=== PATIENT | female | born 1960 | race African-American/Black ===

== ENCOUNTER 2024-05-09 10:23 | Inpatient (IN) | payer OTHER, MEDICAID ==
[~2024-05-09] VITALS: Ht 152.4 cm; Wt 75.0 kg
--- NOTE | 2024-05-09 10:41 | ECG ---
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
--- NOTE | 2024-05-09 10:48 | ED.PDOC ---
HPI Comments HPI: Poor Historian. 64-year-old female presents to emergency department for evaluation of one day history of left arm shoulder to below the elbow pain. Patient also hold her left chest she has some discomfort. Denies any other associated symptoms except shortness of breath. Denies any fall or trauma or injury. Patient uses [place] at home for pain control for chronic low back pain. Past Medical History: Hypertension, diabetes, hyperlipidemia, arthritis, chronic low back pain Past Surgical History: Ovarian cyst, fibroids, Tobacco abuse Multiple drug allergies. REVIEW OF SYSTEMS: CONSTITUTIONAL: Denies acute: fever, diaphoresis, chills, generalized weakness. HEAD: Denies acute: headache, photophobia Eyes: Denies acute: Double vision, vision loss, eye pain, eye discharge. EARS: Denies acute: tinnitus, hearing loss, ear discharge, ear pain, THROAT: Denies acute: sore throat, swelling, difficulty swallowing , pain with swallowing, change in voice. NECK: Denies acute: neck pain, neck swelling, stiff neck. HEART: Denies acute : LUNGS: Denies acute: SOB, wheezing, cough, hemoptysis ABDOMEN: Denies acute: abdominal pain, Nausea, Vomiting, diarrhea, melena , hematemesis, hematochezia SKIN: Denies acute: rash, redness, lesions, itchiness. EXTREMITIES: Denies acute: calf pain, numbness, tingling, weakness, Denies acute: Low back pain. Neuro: Denies acute: focal neurological deficit, motor or sensory focal neurological deficit, tremors, seizure like activity, confusion, dizziness, change in mental status, loss of bowel or bladder function, cauda equina like symptoms. : Denies acute: dysuria, hematuria, flank pain, increase in urinary frequency. PSYCH: Denies acute: hallucination, suicidal ideation, homicidal ideation. FEMALE: Denies acute: abnormal vaginal bleeding, foul odor, unusual discharge. PHYSICAL EXAM: General: no acute distress, awake and alert. Head: normocephalic, atraumatic. Neck: supple, trachea is midline, no swelling. Throat: Normal phonation. Eyes:, no erythema, no purulent discharge, no proptosis, no icterus. Heart: regular rate, regular rhythm, no significant murmur appreciated. Lungs: no apparent respiratory distress, Able to speak in full sentences. No wheezing, no rhonchi, no crackles. No stridors Clear to auscultation bilaterally. Abdomen: non tender to palpation, non distended, soft, no guarding, no rebound, + bowel sounds. Neuro: Awake, Alert, oriented to name, self, situation, follows commands GCS=15. Speech is normal. Skin: no petechia, no purpura, no cyanosis, non-pale, not jaundice. Lower extremities: --no - Pitting edema no deformity, no focal swelling, no calf TTP. Makes eye contact. moves all four extremities. Face: no apparent facial droop. Ambulating in the ED independently. ED COURSE: Chief Complaint: Chest Pain Time Seen by MD: 10:25 Reviewed Notes: Nurses Notes, Medications, Allergies Allergies: Coded Allergies: Erythromycin (Verified Allergy, Unknown, 05/09/24) Metronidazole (Verified Allergy, Unknown, 05/09/24) Penicillins (Verified Allergy, Unknown, 05/09/24) Information Source: Patient Was a procedure done? Was a procedure done?: No CP Differential Dx Differential Diagnosis: N/A Differential Diagnosis: N/A Differential Diagnosis: Other (Ddx include but not limitied to gastritis, musculoskeletal pain, radiculopathy, atypical chest pain, dissection, aneurysm, ACS, unstable angina, hiatal hernia, GERD, anxiety, costochondritis, PE, pneumothroax, neoplasm, cardiac ischemia, drug abuse, anemia.) X-Ray, Labs, Meds, VS Vital Signs Date Time Temp Pulse Resp B/P (MAP) Pulse Ox O2 Delivery O2 Flow Rate FiO2 05/09/24 12:19 175/80 05/09/24 12:11 68 05/09/24 11:28 67 18 98 Room Air* 0 21 05/09/24 11:26 98.1 67 18 155/97 (116) 98 98.1 05/09/24 11:23 155/97 05/09/24 10:30 71 05/09/24 10:25 97.6 74 18 157/81 (106) 97 Lab Test 05/09/24 11:36 05/09/24 10:49 2/21/25 10:40 Range/Units Troponin I High Sensitivity < 3 L < 3 L </=34 ng/L Urine Color Light-yellow Yellow Urine Clarity Turbid H Clear Urine pH 7.0 5.0-9.0 Urine Specific [place] 1.011 1.001-1.035 Urine Protein Negative Negative Urine Ketones Negative Negative Urine Blood Negative Negative /uL Urine Nitrite Negative Negative Urine Bilirubin Negative Negative Urine Urobilinogen Normal Negative mg/dL Urine Leukocyte Esterase Negative Negative /uL Urine RBC 1 0 - 4 /hpf Urine Microscopic WBC 3 0-5 /HPF Urine Squamous Epithelial Cells Mod <5 /hpf Urine Bacteria None seen None Seen /hpf Urine Glucose Normal Normal mg/dL POC Glucose 190 H 70-106 mg/dl White Blood Count 5.9 4.4-10.8 10^3/uL Red Blood Count 4.62 4.0-5.20 10^6/uL Hemoglobin 14.5 12.2-16.2 g/dL Hematocrit 42.8 36.0-46.0 % Mean Corpuscular Volume 92.6 80.0-100.0 fL Mean Corpuscular Hemoglobin 31.4 28.0-32.0 pg Mean Corpuscular Hemoglobin Concent 33.9 32.0-36.0 g/dL Red Cell Distribution Width 14.3 11.8-14.3 % Platelet Count 220 140-450 10^3/uL Mean Platelet Volume 8.9 6.9-10.8 fL Neutrophils (%) (Auto) 49.6 37.0-80.0 % Lymphocytes (%) (Auto) 38.1 10.0-50.0 % Monocytes (%) (Auto) 9.3 0.0-12.0 % Eosinophils (%) (Auto) 2.3 0.0-7.0 % Basophils (%) (Auto) 0.7 0.0-2.0 % Neutrophils # (Auto) 2.9 1.6-8.6 10 ^3/uL Lymphocytes # (Auto) 2.2 0.4-5.4 10 ^3/uL Monocytes # (Auto) 0.5 0-1.3 10 ^3/uL Eosinophils # (Auto) 0.1 0-0.8 10 ^3/uL Basophils # (Auto) 0 0-0.2 10 ^3/uL Nucleated Red Blood Cells 0.2 % Sodium Level 138 136-145 mmol/L Potassium Level 4.7 3.5-5.1 mmol/L Chloride Level 104 98-107 mmol/L Carbon Dioxide Level 25 20-31 mmol/L Anion Gap 9 5-15 Blood Urea Nitrogen 13 9-23 mg/dL Creatinine 0.77 0.550-1.02 mg/dL Glomerular Filtration Rate Calc 85 >90 mL/min BUN/Creatinine Ratio 16.9 10.0-20.0 Serum Glucose 208 H 74-106 mg/dL Calcium Level 9.7 8.7-10.4 mg/dL Total Bilirubin 0.3 0.2-1.0 mg/dL Aspartate Amino Transferase (AST) 27 13-40 U/L Alanine Aminotransferase (ALT) 26 7-40 U/L Alkaline Phosphatase 159 H 46-116 U/L Total Protein 6.9 5.7-8.2 g/dL Albumin 4.4 3.2-4.8 g/dL Current Medications Medications (Trade) Dose Ordered Sig/Kavon Route Start Time Stop Time Status Last Admin Aspirin (Ecotrin Enteric Coated Tablet) 325 mg ONCE ONCE PO 05/09/24 11:00 05/09/24 11:08 DC 05/09/24 11:23 Nitroglycerin (Ntrostat Sublingual) 0.4 mg ONCE ONCE SL 05/09/24 11:00 05/09/24 11:08 DC 05/09/24 11:23 Time of 1ST Reevaluation: 20:29 Reevaluation 1ST: Improved Patient Education/Counseling: Diagnosis, Treatment Family Education/Counseling: Other Comments Patient presented with the above HPI.--cardiac---workup was initiated. patient was found with the above mentioned diagnosis. the following medications were ordered: please refer to order lists of meds and tests obtained by myself Dr. Kapoor. Patient ED course and VS have been stabilized. Patient has been reassessed in the ED and remained in a stable condition. Pertinent incidental findings were discussed with the patient and/or family. Patient/family voices understanding and is agreeable with plan. Patient has been observed in the ED adequate length of time to insure improvement/stability. Escalation of care considered: Consideration of escalation to observation or admission Patient was ADMITTED to the medicine team for further evaluation and treatment of their presentation. All the reports of any imaging studies that were ordered by myself were reviewed by myself. Departure 1 Departure Time of Disposition: 10:57 Impression: Primary Impression: Chest pain Disposition: 09 ADMITTED INPATIENT Admit to: Tele Condition: Guarded Discharged With: Self Critical Care Note Critical Care Time?: No Heart Score Heart Score: Heart Score Response (Comments) Value History Moderate Suspicious 1 EKG Normal 0 Age >65 2 Risk Factors >3 or Hx ASHD 2 Troponin Normal limit 0 Total 5 I personally scribed for EDGAR KAPOOR DO ([email or web address]) on 05/09/24 at 10:48. Electronically submitted by Geronimo Gonzalez ([email or web address]). EDGAR KAPOOR DO May 09, 2024 10:48
[2024-05-09] MEDS: ASPirin-EC 325mg tab PO ONE (11:23)
[2024-05-09] MEDS: NITROGLYCERIN 0.4 MG SL TAB SL ONE (11:23)
[2024-05-09 11:24] LABS: Basophils # (auto) 0 10 ^3/uL (0-0.2); Basophils % (auto) 0.7 % (0.0-2.0); Eosinophils # (auto) 0.1 10 ^3/uL (0-0.8); Eosinophils % (auto) 2.3 % (0.0-7.0); Hematocrit 42.8 % (36.0-46.0); Hemoglobin 14.5 g/dL (12.2-16.2); Lymphocytes # (auto) 2.2 10 ^3/uL (0.4-5.4); Lymphocytes % (auto) 38.1 % (10.0-50.0); Mean Corpuscular Hemoglobin 31.4 pg (28.0-32.0); Mean Corpuscular Hgb Conc. 33.9 g/dL (32.0-36.0); Mean Corpuscular Volume 92.6 fL (80.0-100.0); Monocytes # (auto) 0.5 10 ^3/uL (0-1.3); Monocytes % (auto) 9.3 % (0.0-12.0); Neutrophils # (auto) 2.9 10 ^3/uL (1.6-8.6); Neutrophils % (auto) 49.6 % (37.0-80.0); Nucleated Red Blood Cells % 0.2 %; Platelet Count (auto) 220 10^3/uL (140-450); Red Blood Cells 4.62 10^6/uL (4.0-5.20); Red Cell Distribution Width 14.3 % (11.8-14.3); White Blood Cell 5.9 10^3/uL (4.4-10.8)
--- NOTE | 2024-05-09 11:24 | DVH ---
EXAM: XY CHEST PORTABLE Indication: CP Technique: Single frontal view of the chest was obtained Comparison: None FINDINGS: Lines and Tubes: None Lungs: No focal consolidation. Pleura: No effusion. No pneumothorax. Cardiomediastinal contours: Unremarkable Bones: No acute osseous abnormality. IMPRESSION: No acute cardiopulmonary disease.
[2024-05-09 11:28] VITALS: PULSE 67; RESP 18; O2SAT 98
[2024-05-09 11:31] LABS: Alanine Aminotransferase 26 U/L (7-40); Albumin 4.4 g/dL (3.2-4.8); Anion Gap 9 (5-15); Aspartate Aminotransferase 27 U/L (13-40); BUN/Creatinine Ratio 16.9 (10.0-20.0); Bilirubin, Total 0.3 mg/dL (0.2-1.0); Blood Urea Nitrogen 13 mg/dL (9-23); Calcium 9.7 mg/dL (8.7-10.4); Carbon Dioxide 25 mmol/L (20-31); Chloride 104 mmol/L (98-107); Potassium 4.7 mmol/L (3.5-5.1); Sodium 138 mmol/L (136-145); Total Protein 6.9 g/dL (5.7-8.2)
[2024-05-09 11:34] LABS: Alkaline Phosphatase 159 U/L (46-116); Glucose 208 mg/dL (74-106)
[2024-05-09 12:06] LABS: Urine Bacteria None Seen /hpf (None Seen)
--- NOTE | 2024-05-09 12:12 | ECG ---
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
[2024-05-09 12:26] LABS: Urine Blood Negative /uL (Negative); Urine Clarity Turbid (Clear); Urine Color Light-Yellow (Yellow); Urine Protein, UAD Negative (Negative); Urine Specific Gravity 1.011 (1.001-1.035); Urine Squamous Epithelial Cell MOD /hpf (<5); Urine Urobilinogen Normal (Negative); Urine WBC 3 /HPF (0-5)
[2024-05-09] MEDS ORDERED: hydrALAZINE HCL 20 MG/ML VL IV PRN (13:00)
[2024-05-09] MEDS ORDERED: HYDROcodone-ACET 5/325MG TAB PO PRN (13:30)
[2024-05-09] MEDS ORDERED: NITROGLYCERIN 0.4 MG SL TAB SL PRN (13:30)
[2024-05-09] MEDS ORDERED: DOCUSATE SOD 100 MG CAP PO PRN (13:30)
[2024-05-09] MEDS ORDERED: MAALOX PLUS or MAALOX 30 ML PO PRN (13:30)
[2024-05-09] MEDS ORDERED: ONDANSETRON HCL 4 MG/2 ML VIAL IV PRN (13:30)
[2024-05-09] MEDS ORDERED: MORPHINE SULFATE INJ 2 MG/ml SYRG IV PRN (13:30)
--- NOTE | 2024-05-09 13:38 | ECG ---
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
--- NOTE | 2024-05-09 13:58 | DVHHP2 ---
History of Present Illness Reason for Visit: chest pain History of Present Illness Patient is 64-year-old female who presented to emergency department for evaluation of one day history of left arm shoulder to below the elbow pain. Patient also hold her left chest she has some discomfort, with shortness of breath at rest. Denies any other associated symptoms. Patient states she has had this chest pain for about a week, she recently had an appointment with her primary care provider and told him about her symptoms and he submitted a referral for Cardiology however the pain was worse today so she decided to go to the ER. Patient reported that after taking the nitro she felt a lot better. Tropes were negative. Still reports mild chest pain which has improved since the nitro. UA also negative for UTI. Denies any fall or trauma or injury. Past Medical History: Hypertension, diabetes, hyperlipidemia, arthritis, chronic low back pain Past Surgical History: Ovarian cyst, fibroids, Family History: None Smoke: <1 pack per day ALCOHOL: none Drugs: None Lives: Alone Review of Systems Constitutional: No: Fever, Chills, Sweats, Weakness, Malaise, Other Eyes: No: Pain, Vision change, Conjunctivae inflammation, Eyelid inflammation, Other, Redness ENT: No: Ear pain, Ear discharge, Nose pain, Nose discharge, Nose congestion, Mouth pain, Mouth swelling, Throat pain, Throat swelling, Other Respiratory: No: Cough, Dry, Shortness of breath, SOB with excertion, Wheezing, Hemoptysis, Pleuritic Pain, Sputum, Wheezing, Other Cardiovascular: Chest Pain Gastrointestinal: No: Nausea, Vomiting, Abdominal Pain, Diarrhea, Constipation, Melena, Hematochezia, Other Genitourinary: No Dysuria, No Frequency, No Incontinence, No Hematuria, No Retention, No Other Musculoskeletal: shoulder pain; No: other, neck pain, arm pain, back pain, hand pain, leg pain, foot pain Neurological: No: Weakness, Numbness, Incoordination, Change in speech, Confu olivier, Seizures, Other Allergies: Coded Allergies: Erythromycin (Verified Allergy, Unknown, 05/09/24) Metronidazole (Verified Allergy, Unknown, 05/09/24) Penicillins (Verified Allergy, Unknown, 05/09/24) Medications Current Medications Medications Dose Ordered Sig/Kavon Route Start Time Stop Time Status Last Admin Dose Admin Hydralazine HCl 10 mg Q6HP PRN IV 05/09/24 13:00 Exam Vital Signs Vital Signs Date Time Temp Pulse Resp B/P (MAP) Pulse Ox O2 Delivery O2 Flow Rate FiO2 05/09/24 12:19 175/80 05/09/24 12:11 68 05/09/24 11:28 18 98 Room Air* 0 21 05/09/24 11:26 98.1 98.1 General Appearance: Alert, Oriented X3, Cooperative, No acute distress HEENT: Atraumatic, PERRLA, EOMI, Mucous membr. moist/pink Respiratory: Clear to auscultation, Normal air movement Cardiovascular: Regular rate, Normal S1, Normal S2, No murmurs Abdominal: Normal bowel sounds, Soft, No tenderness, No hepatospenomegaly, No masses Extremities: No clubbing, No cyanosis, No edema, Normal pulses, No tenderness/swelling Skin: No rashes, No breakdown, No significant lesion Neuro: Normal gait, Normal speech, Strength at 5/5 X4 ext, Normal tone, Sensation intact, Cranial nerves 3-12 NL, Reflexes 2+ Psych/Mental Status: Mental status NL, Mood NL Labs/Xrays Reviewed Labs Test 05/09/24 11:36 05/09/24 10:49 05/09/24 10:40 Range/Units Troponin I High Sensitivity < 3 L </=34 ng/L Urine Color Light-yellow Yellow Urine Clarity Turbid H Clear Urine pH 7.0 5.0-9.0 Urine Specific [place] 1.011 1.001-1.035 Urine Protein Negative Negative Urine Ketones Negative Negative Urine Blood Negative Negative /uL Urine Nitrite Negative Negative Urine Bilirubin Negative Negative Urine Urobilinogen Normal Negative mg/dL Urine Leukocyte Esterase Negative Negative /uL Urine RBC 1 0 - 4 /hpf Urine Microscopic WBC 3 0-5 /HPF Urine Squamous Epithelial Cells Mod <5 /hpf Urine Bacteria None seen None Seen /hpf Urine Glucose Normal Normal mg/dL POC Glucose 190 H 70-106 mg/dl White Blood Count 5.9 4.4-10.8 10^3/uL Red Blood Count 4.62 4.0-5.20 10^6/uL Hemoglobin 14.5 12.2-16.2 g/dL Hematocrit 42.8 36.0-46.0 % Mean Corpuscular Volume 92.6 80.0-100.0 fL Mean Corpuscular Hemoglobin 31.4 28.0-32.0 pg Mean Corpuscular Hemoglobin Concent 33.9 32.0-36.0 g/dL Red Cell Distribution Width 14.3 11.8-14.3 % Platelet Count 220 140-450 10^3/uL Mean Platelet Volume 8.9 6.9-10.8 fL Neutrophils (%) (Auto) 49.6 37.0-80.0 % Lymphocytes (%) (Auto) 38.1 10.0-50.0 % Monocytes (%) (Auto) 9.3 0.0-12.0 % Eosinophils (%) (Auto) 2.3 0.0-7.0 % Basophils (%) (Auto) 0.7 0.0-2.0 % Neutrophils # (Auto) 2.9 1.6-8.6 10 ^3/uL Lymphocytes # (Auto) 2.2 0.4-5.4 10 ^3/uL Monocytes # (Auto) 0.5 0-1.3 10 ^3/uL Eosinophils # (Auto) 0.1 0-0.8 10 ^3/uL Basophils # (Auto) 0 0-0.2 10 ^3/uL Nucleated Red Blood Cells 0.2 % Sodium Level 138 136-145 mmol/L Potassium Level 4.7 3.5-5.1 mmol/L Chloride Level 104 98-107 mmol/L Carbon Dioxide Level 25 20-31 mmol/L Anion Gap 9 5-15 Blood Urea Nitrogen 13 9-23 mg/dL Creatinine 0.77 0.550-1.02 mg/dL Glomerular Filtration Rate Calc 85 >90 mL/min BUN/Creatinine Ratio 16.9 10.0-20.0 Serum Glucose 208 H 74-106 mg/dL Calcium Level 9.7 8.7-10.4 mg/dL Total Bilirubin 0.3 0.2-1.0 mg/dL Aspartate Amino Transferase (AST) 27 13-40 U/L Alanine Aminotransferase (ALT) 26 7-40 U/L Alkaline Phosphatase 159 H 46-116 U/L Total Protein 6.9 5.7-8.2 g/dL Albumin 4.4 3.2-4.8 g/dL Assessment/Plan Assessment/Plan Acute Chest pain Admit to telemetry Aspirin and nitro given in ER- did feel relief EKG normal sinus rhythm X-ray no acute abnormalities Troponins Negative Consult cardiology Chronic Benign essential hypertension Resume home meds losartan and Coreg Hydralazine p.r.n. 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 13:21 Bedrest With Bathroom [facility] 05/09/24 Verified Privileg 13:21 Alum & Mag [facility] 05/09/24 Verified Hydrox-Simethicone 13:30 Docusate Sodium PHA 05/09/24 Verified Capsule (Colace 13:30 Notify Of Changes [facility] 05/09/24 Verified From Base 13:21 Advance Directive [facility] 05/09/24 Verified 13:21 Basic Metabolic Panel LAB 05/10/24 Verified 04:00 Complete Blood Count LAB 05/10/24 Verified 04:00 Lipid Panel LAB 05/10/24 Verified 04:00 Patient Condition ORDERS 05/09/24 Verified 13:21 Allergies [facility] 05/09/24 Verified 13:21 Hydrocodone-Acet [facility] 05/09/24 Verified 5/325mg Tab ([place] 13:30 Ondansetron Hcl PHA 05/09/24 Verified (Zofran) 13:30 Hemoglobin A1c LAB 05/10/24 Verified 04:00 Cardiac DIET 05/09/24 Verified Diet-2gna,Lofat,Lochol Lunch * Cardiology Consult CONS 05/09/24 Verified 13:21 Nitroglycerin PHA 05/09/24 Verified Sublingual (Ntrostat 13:30 Morphine Sulfate PHA 05/09/24 Verified Injection 13:30 Stat Ekg For Chest [facility] 05/09/24 Verified Pain 13:21 Notify Of Changes [facility] 05/09/24 Verified From Base 13:21 Yardmaster For [facility] 05/09/24 Verified 24 Hours 13:21 Emergency Dysrhythmia [facility] 05/09/24 Verified Protocol 13:21 Rhythm Strips Once [facility] 05/09/24 Verified Every Shift 13:21 Oxygen By Nasal RT 05/09/24 Verified Cannula 13:21 Atorvastatin (Lipitor) PHA 05/09/24 Verified 22:00 Gabapentin Capsule PHA 05/09/24 Verified (Neurontin Capsule) 14:00 Losartan Tablet PHA 05/10/24 Verified (Cozaar Tablet) 10:00 Pantoprazole Tablet PHA 05/10/24 Verified (Protonix Tablet) 06:00 Carvedilol Tablet PHA 05/09/24 Verified (Coreg Tablet) 22:00 Date of Service: May 09, 2024 Billing Provider: CHECO CLARKE Common Visit Codes: [id number] INP/OBS CARE(HIGH) CHECO CLARKE May 09, 2024 13:58
[2024-05-09] MEDS: GABAPENTIN 300 MG CAP PO SCH (14:03)
[2024-05-09] MEDS ORDERED: DEXTROSE (50%) 50ML SYRG IV PRN (14:15)
--- NOTE | 2024-05-09 16:05 | DVHINCON2 ---
Date Seen: May 09, 2024 Referring Physician CLEMENTE Tobar Reason for Consultation Chest pain History of Present Illness This is a 64-year-old female patient who presents to the emergency room with chief complaint of left shoulder and left arm pain. The patient reports that symptoms began yesterday evening. Cardiology has now been consulted for chest pain. When asking the patient to show where pain is at, she points to her left shoulder and down her left arm. When asked if she is experiencing any chest pain, the patient reports she had one episode that felt sharp near her left outer breast area. She describes the pain as unprovoked, constant, sharp in nature, and from her left shoulder down to her left hand. Shee denies any recent injuries. Initial twelve lead electrocardiogram reveals normal sinus rhythm without any significant ST segment depression. Serial troponin levels have been negative. Significant past medical history includes hypertension, dyslipidemia, type 2 diabetes mellitus, peripheral neuropathy, COPD, chronic back pain, depression, tobacco use and obesity. Past Medical History Past medical history reviewed. No other significant than mentioned above. Past Surgical History Hysterectomy Uterine fibroid removal Ovarian cyst removal Family History Family history reviewed. Social History The patient has 35 pack-year history, smokes approximately half pack per day now Patient reports she is a recovering cocaine addict, last time used in 1996 Admits to social alcohol use, approximately 1-2 drinks per month Allergies: Coded Allergies: Erythromycin (Verified Allergy, Unknown, 05/09/24) Metronidazole (Verified Allergy, Unknown, 05/09/24) Penicillins (Verified Allergy, Unknown, 05/09/24) Home Meds Home medications reviewed. Current Medications Current Medications Medications (Trade) Dose Ordered Sig/Kavon Route PRN Reason Start Time Stop Time Status Last Admin Hydralazine HCl (Apresoline Injection) 10 mg Q6HP PRN IV SBP>150 05/09/24 13:00 Al Hydrox/Mg Hydrox/Simethicone (Maalox Plus) 30 ml Q6HP PRN PO FOR STOMACH DISTRESS 05/09/24 13:30 Docusate Sodium (Colace Capsule) 100 mg BIDPRN PRN PO FOR CONSTIPATION 05/09/24 13:30 Acetaminophen/ Hydrocodone Bitart ([place] 5/325MG Tab) 1 tab Q4HP PRN PO MODERATE PAIN (4-6 PAIN SCALE) 05/09/24 13:30 Ondansetron HCl (Zofran) 4 mg Q4HP PRN IV NAUSEA / VOMITING 05/09/24 13:30 Nitroglycerin (Ntrostat Sublingual) 0.4 mg Q5MINP PRN SL FOR CHEST PAIN 05/09/24 13:30 Morphine Sulfate 2 mg Q30M PRN IV FOR CHEST PAIN 05/09/24 13:30 Atorvastatin Calcium (Lipitor) 40 mg HS PO 05/09/24 22:00 Gabapentin (Neurontin Capsule) 300 mg TID PO 05/09/24 14:00 05/09/24 14:03 Losartan Potassium (Cozaar Tablet) 100 mg DAILY PO 05/10/24 10:00 Pantoprazole Sodium (Protonix Tablet) 40 mg DAILY@0600 PO 05/10/24 06:00 Carvedilol (Coreg Tablet) 6.25 mg Q12HR PO 05/09/24 22:00 Diagnostic Test (Pha) (Accu-Chek Comfort Curve T) 1 strip ACHS 05/09/24 17:00 Insulin Human Regular (InsuLIN R) HS SC 05/09/24 22:00 Insulin Human Regular (InsuLIN R) AC SC 05/09/24 17:00 Dextrose 50 ml UD PRN IV Blood Sugar LESS THAN 60 05/09/24 14:15 Review of Systems Constitutional: No symptom reported Ears, Nose, & Throat: No symptom reported Eyes: No symptom reported Neurological: No symptoms reported Pulmonary/Respiratory: No symptoms reported Cardiovascular: No symptom reported Gastrointestinal: No symptom reported Genitourinary: No symptom reported Musculoskeletal: Left arm and shoulder pain Skin: No symptom reported Psychiatric: No symptom reported Endocrine: No symptom reported Hematologic/Lymphatic: No symptom reported Vital Signs Vital Signs Date Time Temp Pulse Resp B/P (MAP) Pulse Ox O2 Delivery O2 Flow Rate FiO2 05/09/24 12:19 175/80 05/09/24 12:11 68 05/09/24 11:28 18 98 Room Air* 0 21 05/09/24 11:26 98.1 98.1 Physical Exam General Appearance: Cooperative. Well-developed. Well-nourished. No acute distress. Pulmonary/Respiratory: Clear, bilateral breaths sounds. Cardiovascular/Chest: Regular rate and rhythm. Peripheral Pulses: 2+ Radial (R). 2+ Radial (L). 2+ Pedal (R). 2+ Pedal (L) Abdominal Exam: Normal bowel sounds. Ankle Exam: Negative ankle edema Lower extremities: Negative lower extremity edema Neuro/Mental Status: A/OX4, coherent. Thoughts/Psych: Normal thought pattern. Appropriate mood and affect. Good judgment and insight. Appearance: No acute distress. Skin Exam: Normal inspection. Normal color. Warm and dry. Labs/Diagnostic Data Labs Test 05/09/24 13:42 05/09/24 10:49 05/09/24 10:40 Range/Units Troponin I High Sensitivity < 3 L </=34 ng/L Urine Color Light-yellow Yellow Urine Clarity Turbid H Clear Urine pH 7.0 5.0-9.0 Urine Specific [place] 1.011 1.001-1.035 Urine Protein Negative Negative Urine Ketones Negative Negative Urine Blood Negative Negative /uL Urine Nitrite Negative Negative Urine Bilirubin Negative Negative Urine Urobilinogen Normal Negative mg/dL Urine Leukocyte Esterase Negative Negative /uL Urine RBC 1 0 - 4 /hpf Urine Microscopic WBC 3 0-5 /HPF Urine Squamous Epithelial Cells Mod <5 /hpf Urine Bacteria None seen None Seen /hpf Urine Glucose Normal Normal mg/dL POC Glucose 190 H 70-106 mg/dl White Blood Count 5.9 4.4-10.8 10^3/uL Red Blood Count 4.62 4.0-5.20 10^6/uL Hemoglobin 14.5 12.2-16.2 g/dL Hematocrit 42.8 36.0-46.0 % Mean Corpuscular Volume 92.6 80.0-100.0 fL Mean Corpuscular Hemoglobin 31.4 28.0-32.0 pg Mean Corpuscular Hemoglobin Concent 33.9 32.0-36.0 g/dL Red Cell Distribution Width 14.3 11.8-14.3 % Platelet Count 220 140-450 10^3/uL Mean Platelet Volume 8.9 6.9-10.8 fL Neutrophils (%) (Auto) 49.6 37.0-80.0 % Lymphocytes (%) (Auto) 38.1 10.0-50.0 % Monocytes (%) (Auto) 9.3 0.0-12.0 % Eosinophils (%) (Auto) 2.3 0.0-7.0 % Basophils (%) (Auto) 0.7 0.0-2.0 % Neutrophils # (Auto) 2.9 1.6-8.6 10 ^3/uL Lymphocytes # (Auto) 2.2 0.4-5.4 10 ^3/uL Monocytes # (Auto) 0.5 0-1.3 10 ^3/uL Eosinophils # (Auto) 0.1 0-0.8 10 ^3/uL Basophils # (Auto) 0 0-0.2 10 ^3/uL Nucleated Red Blood Cells 0.2 % Sodium Level 138 136-145 mmol/L Potassium Level 4.7 3.5-5.1 mmol/L Chloride Level 104 98-107 mmol/L Carbon Dioxide Level 25 20-31 mmol/L Anion Gap 9 5-15 Blood Urea Nitrogen 13 9-23 mg/dL Creatinine 0.77 0.550-1.02 mg/dL Glomerular Filtration Rate Calc 85 >90 mL/min BUN/Creatinine Ratio 16.9 10.0-20.0 Serum Glucose 208 H 74-106 mg/dL Calcium Level 9.7 8.7-10.4 mg/dL Total Bilirubin 0.3 0.2-1.0 mg/dL Aspartate Amino Transferase (AST) 27 13-40 U/L Alanine Aminotransferase (ALT) 26 7-40 U/L Alkaline Phosphatase 159 H 46-116 U/L Total Protein 6.9 5.7-8.2 g/dL Albumin 4.4 3.2-4.8 g/dL Assessment Chest pain, rule out coronary ischemia Rule out structural heart disease Hypertension Dyslipidemia Type 2 diabetes mellitus Peripheral neuropathy COPD Chronic back pain Tobacco use Obesity Plan/Recommendation We will continue following plan/recommendations (Dr. Pepper): * Echocardiogram to evaluate cardiac function * Blood pressure control * Lipid-lowering agent * Cardiac surveillance * Nuclear stress test Case discussed with . Given the patient's clinical presentation and significant comorbidities, we will schedule the patient for a nuclear stress test on 05/12/24. Thank you for allowing us to care for this patient. Please call with any questions or concerns. Critical care time spent: 40 minutes This medical document was created using an electronic medical record system with voice recognition software and computerized dictation system. Although this document has been carefully reviewed, there might still be some phonetic and typographical errors. Occasional wrong-word or ``sound-alike substitutions may have occurred due to the inherent limitations of voice recognition software. These areas are purely typographical due to imperfections of the software programs and do not reflect any compromise in the patient's medical care. Please read the chart carefully and recognize, using context, where these substitutions have occurred. Plan discussed with: Patient NYHA Physical activity limitations: NA Date of Service: May 09, 2024 Billing Provider: RYAN DUEÑAS Cardiology Common Codes: 76354-BAYERBE INP/OBS CARE (High) Cardiology Consultation Codes: 24863-OXUMJBGRK CONSULT <45MIN RYAN DUEÑAS May 09, 2024 16:05
[2024-05-09] MEDS: InsuLIN REG 1unit/0.01ml Soln (100units/ml) SC SCH (17:00)
[2024-05-09] MEDS: ACCU-CHEK COMFORT CURVE STRIP VI SCH (17:19)
[2024-05-09 19:40] VITALS: BP 137/98; PULSE 75; TEMP 98.4
[2024-05-09 19:57] VITALS: RESP 16; O2SAT 97
[2024-05-09] MEDS ORDERED: ATORVASTATIN 20 MG TAB PO SCH (22:00)
[2024-05-09] MEDS ORDERED: CARVEDILOL 3.125 MG TAB PO SCH (22:00)
[2024-05-09] MEDS ORDERED: InsuLIN REG 1unit/0.01ml Soln (100units/ml) SC SCH (22:00)
[2024-05-10] MEDS ORDERED: PANTOPRAZOLE 40 MG TAB PO SCH (06:00)
[2024-05-10] MEDS ORDERED: LOSARTAN POTASSIUM 50 MG TAB PO SCH (10:00)
== END 2024-05-09 21:20 | disposition left against medical advice (07) | DRG 313 ==
LOC: ER 10:23 → OVERFLOW 13:21
PROVIDERS: ADMIT Registered Nurse General Practice; ATTEND Registered Nurse General Practice
DX: R07.89 Other chest pain (principal); E78.5 Hyperlipidemia, unspecified; G89.29 Other chronic pain; I10 Essential (primary) hypertension; Z53.29 Procedure and treatment not carried out because of patient's decision for other reasons; F17.200 Nicotine dependence, unspecified, uncomplicated; J44.9 Chronic obstructive pulmonary disease, unspecified; E11.42 Type 2 diabetes mellitus with diabetic polyneuropathy; I25.9 Chronic ischemic heart disease, unspecified; E66.9 Obesity, unspecified; F32.A Depression, unspecified; Z88.1 Allergy status to other antibiotic agents; Z88.0 Allergy status to penicillin; Z88.3 Allergy status to other anti-infective agents; Z90.710 Acquired absence of both cervix and uterus; Z68.32 Body mass index [BMI] 32.0-32.9, adult; Z79.4 Long term (current) use of insulin
CPT/HCPCS: 36415; 71045; 80053; 81001; 82962; 84484; 85025; 93005; G0378